=== PATIENT | female | born 1970 | race Caucasian/White ===

== ENCOUNTER 2016-08-25 20:24 | Emergency (ER) | payer BC, MEDICARE ==
[2016-08-25] MEDS ORDERED: SODIUM CHLORIDE 0.9% 1,000 ML IV ONE (21:14)
[2016-08-25] MEDS ORDERED: KETOROLAC 60 MG/2 ML VIAL IVP STA (21:14)
[2016-08-25] MEDS ORDERED: KETOROLAC 30 MG/ML VIAL ONE (21:29)
[2016-08-25] MEDS ORDERED: IOPAMIDOL-300 100 ML VIAL IVP ONE (22:22)
[2016-08-25] MEDS ORDERED: METOCLOPRAMIDE 10 MG/2 ML VIAL IVP STA (23:19)
[2016-08-25] MEDS ORDERED: METOCLOPRAMIDE 10 MG/2 ML VIAL IVP ONE (23:25)
[2016-08-26] MEDS ORDERED: HYDROcod/ACET 5/325 Prepack 6 PO ONE ×2 (00:22→00:26)
== END 2016-08-26 00:57 | disposition home or self-care (01) ==
DX: R10.12 Left upper quadrant pain (principal); R10.13 Epigastric pain; M32.9 Systemic lupus erythematosus, unspecified; I73.9 Peripheral vascular disease, unspecified; M06.9 Rheumatoid arthritis, unspecified; I69.359 Hemiplegia and hemiparesis following cerebral infarction affecting unspecified side; Z79.82 Long term (current) use of aspirin
CPT/HCPCS: 36415; 74177; 80053; 81003; 83690; 85025; 85379; 85651; 96374; 96375; 99283; 99284; Q9967